=== PATIENT | female | born 1950 | race Caucasian/White ===

== ENCOUNTER → 2023-11-30 10:39 | Outpatient (REF) | payer MEDICARE, SELFPAY | LOC: HWRAD 10:39 | PROVIDERS: ATTENDING PHYSICIAN Nurse Practitioner Adult Health | DX: M25.551 Pain in right hip (principal) | CPT/HCPCS: 73502 ==

== ENCOUNTER 2024-04-20 11:34 | Emergency (ER) | payer MEDICARE, SELFPAY ==
[2024-04-20 11:37] VITALS: BP 188/85
--- NOTE | 2024-04-20 12:18 | ED.GENMED ---
History of Present Illness
General
Chief Complaint: Musculo-Skeletal Complaint
Time Seen by Provider: 04/20/24 12:17
History of Present Illness
History of Present Illness:
TIME OF INITIAL ENCOUNTER: 12:20 PM
HPI: About 10 days ago, the patient went to [facility] due to right knee pain. She states that x-rays there were unremarkable and was gone to follow-up with primary care doctor next week. Today, while walking on the street, her
right knee buckled which led to severe excruciating pain and she was unable to bear weight on the right lower extremity. EMS was called. Currently, she has 1 out of 10 pain and declines any analgesia. She denies any other injury. No fevers.
EXAM:
GENERAL: Well appearing in no distress
HEENT: Moist oral mucosa
NEUROLOGIC: Excellent strength all extremities, no obvious coordination deficits
PSYCHIATRIC: Appropriate mental status, normal insight and judgement
EXTREMITIES: There is decreased active range of motion at the right knee into flexion/extension, mild soft tissue swelling/joint effusion, no erythema or sign of infection, quads and patellar tendons are intact, negative Sole test, she did have
pain with drawer testing
SKIN: No rash, no lesions
NUMBER AND COMPLEXITY OF PROBLEMS ADDRESSED AT THE ENCOUNTER
� Chronic conditions affecting care: High blood pressure, hyperlipidemia, hypothyroidism
� Acute Exacerbation and/or Progression of Chronic Illness: This is an acute problem
� Differential Diagnosis includes: Internal derangement of the right knee, doubt fracture, meniscal/ligamentous rupture, tendon rupture not noted on exam
AMOUNT AND/OR COMPLEXITY OF DATA TO BE REVIEWED AND ANALYZED
� I performed an independent evaluation of and my interpretation is:
EKG:
CT:
X-rays: I personally viewed right knee x-ray, no clear evidence of fracture
Laboratory Studies:
Other:
� Review of other/old records: I reviewed records, the patient had a colonoscopy in 2022
� Clinical information was obtained by an independent historian:
� Prescriptions/Medications Considered but not given:
� Further testing considered but not performed:
RISK OF COMPLICATIONS AND/OR MORBIDITY OR MORTALITY OF PATIENT MANAGEMENT
� Social determinants of health affecting care: Lives at home
� Discussion with other providers:
� Escalation of care including admission/observation vs risk of discharge considered: The patient declines analgesia. She describes 1 out of 10 pain. Will give knee immobilizer but also check x-ray again. Will also give
contact info for ortho.
ANY OTHER UPDATES:
1 PM: I reassessed patient�she appears comfortable. Encourage patient to take the knee immobilizer off a few times a day to exercise the knee. I recommend she follows up with Ortho.
Phy Exam
Physical Exam
Physical Exam:
See HPI
Course
Orders/Labs/Results
Orders:
Orders
04/20/24 12:26
CR Knee- Right 4 Or More View* Urgent
Comment:
Reason For Exam: knee buckled severe pain
04/20/24 12:29
Knee Immobilizer Right-Treatme ONCE
Vital Signs
Initial and Last Documented VS:
Initial Vital Signs
Temp Pulse Resp BP Pulse Ox
36.6 C 63 16 188/85 100
04/20/24 11:37 04/20/24 11:37 04/20/24 11:37 04/20/24 11:37 04/20/24 11:37
Last Documented Vital Signs
Temp Pulse Resp BP Pulse Ox
36.6 C 60 18 170/76 97
04/20/24 11:37 04/20/24 13:29 04/20/24 13:29 04/20/24 13:29 04/20/24 13:29
*Critical Care Note
Total Time (30-74mins, 75-104mins- exclusive of procedures): Not Applicable
ED Attending Note
-
Portions of this chart may have been created with voice recognition software.� Occasional wrong word or��sound alike� substitutions may have occurred due to the inherent limitations of voice recognition software.
Discharge Plan
Departure
Patient Disposition: Home (Routine Discharge)
Date of Disposition: 04/20/24
Time of Disposition: 12:59
Patient with high blood pressure during this ER visit?: Yes
Discharge Problem:
Internal derangement of right knee
Instructions: Knee Immobilizer (DC), Knee Pain (DC), BLOOD PRESSURE
Referrals:
Camila Suárez CRNP [Family Provider] -
Zhao Hall MD [Active] - Follow up in 2-3 days
Activity Restrictions/Additional Instructions:
I have given you the contact information for a local orthopedist such as Dr. Hall. Consider Tylenol and/or Motrin for pain. Return here if worse or other concerns.
Interventions
Interventions:
*Risk Screen - Suicide Last Done: 04/20/24 11:42
*General Assessment Last Done: 04/20/24 13:32
*Neglect/Abuse Screening Last Done: 04/20/24 11:42
ED- Fall Risk Assessment Last Done: 04/20/24 13:32
*ED COVID-19 Vaccine History Last Done: 04/20/24 13:31
*Nursing Disposition Last Done: 04/20/24 13:32
ED-Musculoskeletal Assessment Last Done: 04/20/24 13:32
Discharge Date and Time
Discharge Date/Time: 04/20/24 13:39
Print Language: BURMESE
[2024-04-20 13:29] VITALS: BP 170/76
== END 2024-04-20 13:39 | disposition home or self-care (01) ==
LOC: EMR 11:34
PROVIDERS: EMERGENCY PHYSICIAN Emergency Medicine; FAMILY PHYSICIAN Nurse Practitioner Adult Health
DX: M23.91 Unspecified internal derangement of right knee (principal); E78.5 Hyperlipidemia, unspecified; E03.9 Hypothyroidism, unspecified; I10 Essential (primary) hypertension
CPT/HCPCS: 29505; 99283; 73564

== ENCOUNTER → 2024-05-07 06:57 | Outpatient (REF) | payer MEDICARE, SELFPAY | LOC: PAVMRI 06:57 | PROVIDERS: ATTENDING PHYSICIAN Student in an Organized Health Care Education/Training Program; FAMILY PHYSICIAN Nurse Practitioner Adult Health | DX: M25.561 Pain in right knee (principal) | CPT/HCPCS: 73721 ==

== ENCOUNTER 2024-07-03 13:44 | Emergency (ER) | payer MEDICARE, SELFPAY ==
[2024-07-03 13:49] VITALS: BMI 31.0
--- NOTE | 2024-07-03 15:42 | ED.GENMED ---
History of Present Illness
General
Chief Complaint: Head Injury
Source: patient
Exam Limitations: none
Time Seen by Provider: 07/03/24 15:31
History of Present Illness
History of Present Illness:
74yoF with a history of hypertension and hyperlipidemia presenting for evaluation after a head injury about 2 hours ago. Patient was playing with her grandson when she tripped over her socks and struck the left side of her head against the wall.
She then fell onto her knees. She denies any loss of consciousness. Patient sustained a minor cut behind her left ear from her glasses. She reports a soreness in her head but denies any overt headache. She also has some neck discomfort. She
feels slightly woozy with standing. She denies any visual changes, nausea, or vomiting. She does not take any blood thinners. Patient has sores and wanted to come to the ED to obtain a CT scan just to be sure there were no serious injuries.
Phy Exam
General Physical Exam
General Presentation: well appearing and no apparent distress
General age: appears stated age
General Skin: warm and dry
General Habitus: normal
General Mental: alert
ENT Exam
ENT Exam: normocephalic and other (Small abrasion posterior to L ear. No other external signs of head trauma. No hemotympanum. No cervical spine tenderness. )
Eye Exam
Eye Exam: PERRL
Pulmonary Exam
Pulmonary Exam: no respiratory distress
Neurological Exam
Neurological Exam: alert
Yordan Coma Scale
Eye Opening: Spontaneous
Verbal Response: Oriented
Motor Response: Obeys Commands
GCS Total Score: 15
Skin Exam
Skin Exam: normal color and warm/dry
Psychiatric Exam
Psychiatric Exam: normal mood/affect
Course
Orders/Labs/Results
Orders:
Orders
07/03/24 15:41
CT Cervical Spine W/o Iv Contr Urgent
Comment:
Reason For Exam: fall, neck pain
CT Head W/o Iv Contrast Urgent
Comment:
Reason For Exam: head injury
Vital Signs
Initial and Last Documented VS:
Initial Vital Signs
Temp Pulse Resp Pulse Ox
98.1 F 64 16 98
07/03/24 13:49 07/03/24 13:49 07/03/24 13:49 07/03/24 13:49
Last Documented Vital Signs
Temp Pulse Resp BP Pulse Ox
98.1 F 52 18 152/72 98
07/03/24 13:49 07/03/24 16:00 07/03/24 16:00 07/03/24 16:00 07/03/24 13:49
MDM/Problems Addressed
Differential Diagnosis Includes:
74yoF here after a head injury this afternoon. Tripped and struck head into the wall. No LOC. C/o head soreness and wooziness. No n/v or visual changes. Not on blood thinners. Minor abrasion noted behind L ear. No other external signs of head
trauma. She is awake, alert, with a GCS of 15. Differential diagnosis includes but is not limited to: Closed head injury, concussion, intracranial hemorrhage, fracture
CT head and cervical spine obtained. Imaging is negative for traumatic injuries. There are chronic inflammatory changes noted to the left maxillary and sphenoid sinus. Left maxillary sinus air-fluid level noted, acute sinusitis cannot be
excluded. Patient does report a history of recurrent sinusitis but denies any symptoms currently. Patient is stable for discharge. Supportive care discussed. Advised follow-up with PCP and ED return precautions discussed. Patient discharged in
stable condition.
*Critical Care Note
Total Time (30-74mins, 75-104mins- exclusive of procedures): Not Applicable
ED Attending Note
-
Portions of this chart may have been created with voice recognition software.� Occasional wrong word or��sound alike� substitutions may have occurred due to the inherent limitations of voice recognition software.
Discharge Plan
Departure
Patient Disposition: Home (Routine Discharge)
Date of Disposition: 07/03/24
Time of Disposition: 17:42
Patient with high blood pressure during this ER visit?: No
Discharge Problem:
Closed head injury
Instructions: Head injury in adults
Referrals:
Camila Suárez CRNP [Family Provider] -
Activity Restrictions/Additional Instructions:
Your CT scan is negative for any bleeding or fractures.
Take Tylenol as needed for pain.
Please follow-up with your family doctor. Return to the ER with any new or worsening symptoms.
Interventions
Interventions:
*Risk Screen - Suicide Last Done: 07/03/24 13:49
*ED COVID-19 Vaccine History Last Done: 07/03/24 13:49
*Nursing Disposition Last Done: 07/03/24 17:52
ED- Neurological Assessment Last Done: 07/03/24 15:46
ED-Skin Assessment Last Done: 07/03/24 15:46
Discharge Date and Time
Discharge Date/Time: 07/03/24 17:52
Print Language: PERSIAN
[2024-07-03 16:00] VITALS: BP 152/72
== END 2024-07-03 17:52 | disposition home or self-care (01) ==
LOC: EMR 13:44
PROVIDERS: EMERGENCY PHYSICIAN Emergency Medicine; FAMILY PHYSICIAN Nurse Practitioner Adult Health
DX: S09.90XA Unspecified injury of head, initial encounter (principal); S00.412A Abrasion of left ear, initial encounter; R42 Dizziness and giddiness; M54.2 Cervicalgia; W18.09XA Striking against other object with subsequent fall, initial encounter; Y93.89 Activity, other specified; I10 Essential (primary) hypertension; E78.5 Hyperlipidemia, unspecified; Z88.2 Allergy status to sulfonamides
CPT/HCPCS: 99284; 70450; 72125

== ENCOUNTER → 2024-11-02 07:37 | Outpatient (REF) | payer MEDICARE, SELFPAY | LOC: HWWDC 07:37 | PROVIDERS: ATTENDING PHYSICIAN Nurse Practitioner Adult Health | DX: Z12.31 Encounter for screening mammogram for malignant neoplasm of breast (principal); Z78.0 Asymptomatic menopausal state | CPT/HCPCS: 77063; 77067; 77080 ==